=== PATIENT | female | born 1990 | race Caucasian/White ===

== ENCOUNTER 2019-09-16 22:11 | Emergency (ER) | payer SELFPAY ==
[2019-09-16] MEDS ORDERED: methylPREDNISolone Sodium Succinate 125 MG/2 ML SDV IVPUSH STA (22:20)
[2019-09-16] MEDS ORDERED: diphenhydrAMINE 50 MG/ML SDV IVPUSH ONE (22:21)
--- NOTE | 2019-09-16 22:27 | EDM.PDOC ---
ED HPI GENERAL MEDICAL PROBLEM - General Chief Complaint: Allergic Reaction Stated Complaint: ALLERGIC REACTION Time Seen by Provider: 09/16/19 22:17 Source of Information: Reports: Patient History Limitations: Reports: No Limitations - History of Present Illness INITIAL COMMENTS - FREE TEXT/NARRATIVE: [place] primary ovarian failure ( artificially induced) , decided to try feminine product vaginally, immediately developed rash and itching all over, in the trunk and extremities, no sob , no tongue swelling , no cough noted has other environmental allergies Onset: Today, Sudden Onset Date: 09/16/19 Onset Time: 08:30 Duration: Getting Worse Location: Reports: Head, Face, Neck, Abdomen, Back Quality: Reports: Burning Severity: Moderate Improves with: Reports: Cold Therapy Worsens with: Reports: None Context: Reports: Other (used new feminine product ( vaginally)) Associated Symptoms: Reports: Rash. Denies: Confusion, Cough, Diaphoresis, Shortness of Breath - Related Data Allergies Allergy/AdvReac Type Severity Reaction Status Date / Time erythromycin base Allergy Vomiting Verified 09/16/19 22:35 [Erythromycin Base] Home Meds: Home Meds Ibuprofen 800 - 1,200 mg PO Q4H PRN 12/14/14 [History] Gabapentin [Neurontin] 1 cap PO TID 09/16/19 [History] predniSONE [Prednisone] 40 mg PO DAILY 5 Days #5 tablet 09/16/19 [Rx] Past Medical History - Past Health History Medical/Surgical History: Denies Medical/Surgical History Psychiatric History: Reports: Suicide Attempt, Suicidal Ideation - Past Surgical History Female Surgical History: Reports: D&C, Hysterectomy Social & Family History - Caffeine Use Caffeine Use: Reports: None - Living Situation & Occupation Living situation: Reports: ED ROS ALLERGIC REACTION - Review of Systems Review Of Systems: See Below Constitutional: Reports: No Symptoms HEENT: Denies: Rhinitis, Sinus Problem, Throat Swelling, Vision Change Respiratory: Denies: Shortness of Breath, Wheezing, Cough Cardiovascular: Reports: No Symptoms Endocrine: Reports: No Symptoms GI/Abdominal: Reports: No Symptoms Musculoskeletal: Reports: No Symptoms Skin: Reports: Dryness, Rash Psychiatric: Reports: Anxiety Immunologic: Reports: Environmental Allergy ED EXAM GENERAL NO PERIP PULSE - Physical Exam Exam: See Below Exam Limited By: No Limitations General Appearance: Alert, WD/WN, Mild Distress (from itching) Eye Exam: Bilateral Eye: EOMI, PERRL Ears: Normal External Exam Nose: Normal Inspection Throat/Mouth: Normal Inspection Head: Atraumatic, Normocephalic. No: Facial Swelling, Facial Tenderness, Sinus Tenderness Neck: Normal Inspection, Supple, Non-Tender, Full Range of Motion Respiratory/Chest: Lungs Clear Cardiovascular: Regular Rate, Rhythm Extremities: Normal Range of Motion, Non-Tender Skin Exam: Warm, Rash (diffuse macular rash on neck trunk) Lymphatic: No Adenopathy Course - Vital Signs Text/Narrative:: pt given IV solumedrol, benadryl felt nauseated , given Zofran IVF started on pt, had 1liter of fluid , still felt "hot" rash gradually improved , was given Hydroxyzine 25mg po pt improved rash resolved since she had swallowed a pill, will place her on oral prednisone for 5 days Last Recorded V/S: Last Vital Signs Temp 36.7 C 09/16/19 22:13 Pulse 111 H 09/16/19 22:13 Resp 21 H 09/16/19 22:13 BP 145/109 H 09/16/19 22:13 Pulse Ox 100 09/16/19 22:13 - Orders/Labs/Meds Meds: Medications Discontinued Medications Generic Name Dose Route Start Last Admin Trade Name Freq PRN Reason Stop Dose Admin Al Hydroxide/Mg Hydroxide 30 ml 09/16/19 22:35 09/16/19 22:43 Mag-Al Susp PO 09/16/19 22:36 30 ml ONETIME ONE Administration Diphenhydramine HCl 25 mg 09/16/19 22:21 09/16/19 22:24 Benadryl IVPUSH 09/16/19 22:22 25 mg ONETIME ONE Administration Hydroxyzine Pamoate 50 mg 09/16/19 23:30 09/16/19 23:34 Vistaril PO 09/16/19 23:31 50 mg ONETIME ONE Administration Sodium Chloride 1,000 mls @ 999 mls/hr 09/16/19 22:36 09/16/19 23:00 Normal Saline IV 09/16/19 23:36 999 mls/hr .BOLUS ONE Administration Methylprednisolone Sodium Succinate 125 mg 09/16/19 22:20 09/16/19 22:24 Solu-Medrol IVPUSH 09/16/19 22:21 125 mg NOW STA Administration Ondansetron HCl 4 mg 09/16/19 22:29 09/16/19 22:32 Zofran Odt PO 09/16/19 22:30 4 mg ONETIME ONE Administration Ondansetron HCl Confirm 09/16/19 22:31 09/16/19 22:35 Zofran Odt Administered 09/16/19 22:32 Not Given Dose 4 mg .ROUTE .STK-MED ONE Departure - Departure Time of Disposition: 11:55 Disposition: Home, Self-Care 01 Condition: Fair Clinical Impression: Allergic reaction to chemical substance - Discharge Information *PRESCRIPTION DRUG MONITORING PROGRAM REVIEWED*: Not Applicable *COPY OF PRESCRIPTION DRUG MONITORING REPORT IN PATIENT SAIDA: Not Applicable Instructions: Allergies, Adult Referrals: Shayna Steinberg NP [Primary Care Provider] - Forms: ED Department Discharge Additional Instructions: Avoid same substance If symptoms re-occur , return to the ER Sepsis Event Note - Focused Exam Vital Signs: Vital Signs Temp Pulse Resp BP Pulse Ox 09/16/19 22:13 36.7 C 111 H 21 H 145/109 H 100 Date Exam was Performed: 09/16/19 Time Exam was Performed: 23:49
[2019-09-16] MEDS ORDERED: Ondansetron 4 MG Tab.DIS PO ONE (22:29)
[2019-09-16] MEDS ORDERED: Ondansetron 4 MG Tab.DIS ONE (22:31)
[2019-09-16] MEDS ORDERED: Aluminum Hydroxide/Magnesium Hydroxide Susp 30 ML Cup PO ONE (22:35)
[2019-09-16] MEDS ORDERED: Sodium Chloride 0.9% 1,000 ML IV ONE (22:36)
[2019-09-17 00:27] VITALS: BP 95/58; PULSE 80
== END 2019-09-17 00:25 | disposition home or self-care (01) ==
LOC: FB.ED 22:11
DX: T78.49XA Other allergy, initial encounter (principal); Z88.1 Allergy status to other antibiotic agents
CPT/HCPCS: 96361; 96374; 96375; 99283; 99283-25; A9270-GY; J1200; J2930; J7030

== ENCOUNTER 2019-10-28 19:56 | Emergency (ER) | payer MEDICAID, OTHER ==
[2019-10-28] MEDS ORDERED: Lidocaine 1% 20 ML MDV INFILT ONE (19:57)
[2019-10-28] MEDS ORDERED: Lidocaine/EPINEPHrine/Tetracaine Soln 5 ML Each TOP ONE (20:01)
--- NOTE | 2019-10-28 20:08 | EDM.PDOC ---
ED HPI GENERAL MEDICAL PROBLEM - General Stated Complaint: CUT TO LEFT HAND Time Seen by Provider: 10/28/19 20:00 Source of Information: Reports: Patient History Limitations: Reports: No Limitations - History of Present Illness INITIAL COMMENTS - FREE TEXT/NARRATIVE: Patient presented to the ED because of a laceration on the left upper arm. She was trying to open a bottle of wine with a knife and accidentally cut her right forearm sustained a 1.5 cm incised wound. left wrist Pain Score (Numeric/FACES): 7 - Related Data Allergies Allergy/AdvReac Type Severity Reaction Status Date / Time erythromycin base Allergy Vomiting Verified 09/16/19 22:35 [Erythromycin Base] Home Meds: Home Meds Ibuprofen 800 - 1,200 mg PO Q4H PRN 12/14/14 [History] Gabapentin [Neurontin] 1 cap PO TID 09/16/19 [History] predniSONE [Prednisone] 40 mg PO DAILY 5 Days #5 tablet 09/16/19 [Rx] Past Medical History - Past Health History Medical/Surgical History: Denies Medical/Surgical History Psychiatric History: Reports: Suicide Attempt, Suicidal Ideation - Past Surgical History Female Surgical History: Reports: D&C, Hysterectomy Social & Family History - Family History Family Medical History: Noncontributory - Caffeine Use Caffeine Use: Reports: None - Living Situation & Occupation Living situation: Reports: ED ROS GENERAL - Review of Systems Review Of Systems: See Below Constitutional: Reports: No Symptoms HEENT: Reports: No Symptoms Respiratory: Reports: No Symptoms Cardiovascular: Reports: No Symptoms Endocrine: Reports: No Symptoms GI/Abdominal: Reports: No Symptoms : Reports: No Symptoms Musculoskeletal: Reports: No Symptoms Skin: Reports: Other (1.5 cm incised wound left upper arm) ED EXAM, SKIN/RASH Exam: See Below Exam Limited By: No Limitations General Appearance: Alert, No Apparent Distress Ears: Normal External Exam, Normal Canal, Hearing Grossly Normal, Normal TMs Nose: Normal Inspection, Normal Mucosa Throat/Mouth: Normal Inspection, Normal Lips Head: Atraumatic, Normocephalic Neck: Normal Inspection, Supple, Non-Tender Respiratory/Chest: No Respiratory Distress, Lungs Clear, Normal Breath Sounds, No Accessory Muscle Use, Chest Non-Tender Cardiovascular: Normal Peripheral Pulses, Regular Rate, Rhythm, No Edema, No Gallop, No JVD, No Murmur, No Rub GI/Abdominal: Normal Bowel Sounds, Soft, Non-Tender, No Organomegaly, No Distention, No Abnormal Bruit (Female) Exam: Normal External Exam Back Exam: Normal Inspection, Full Range of Motion Extremities: Normal Inspection, Normal Range of Motion, Non-Tender, No Pedal Edema, Normal Capillary Refill Neurological: Alert, Oriented, CN II-XII Intact, Normal Cognition, Normal Gait, Normal Reflexes, No Motor/Sensory Deficits Psychiatric: Normal Affect, Normal Mood Skin: Warm, Intact, Normal Color ED SKIN PROCEDURES - Laceration/Wound Repair Left Upper Other Appearance: Superficial Distal NVT: Neuro & Vascular Intact Local Anesthesia - Lidocaine (Xylocaine): 1% Plain Local Anesthetic Volume: 1cc Skin Prep: Chlorhexidine (Hibiciens) Closed with: Sutures Lac/Wound length In cm: 1.5 Suture Size: 3-0 Suture Type: Nylon, Simple # of Sutures: 3 Course - Vital Signs Text/Narrative:: UTD with immunization see procedure Last Recorded V/S: Last Vital Signs Temp 36.4 C 10/28/19 19:56 Pulse 94 10/28/19 19:56 Resp 16 10/28/19 19:56 BP 119/68 10/28/19 19:56 Pulse Ox 98 10/28/19 19:56 - Orders/Labs/Meds Meds: Medications Discontinued Medications Generic Name Dose Route Start Last Admin Trade Name Chantel PRN Reason Stop Dose Admin Lidocaine/Tetracaine 5 ml 10/28/19 20:01 10/28/19 20:05 Let Soln TOP 10/28/19 20:02 5 ml ONETIME ONE Administration Departure - Departure Time of Disposition: 20:30 Disposition: Home, Self-Care 01 Condition: Good Clinical Impression: Laceration - Discharge Information Instructions: Laceration Care, Adult Referrals: Shayna Steinberg NP [Primary Care Provider] - Forms: ED Department Discharge Additional Instructions: Please read discharge instructions on laceration and wound care No need to apply an antibiotic ointment Do not cover your wound when you're inside the house(air dry) Removal of suture in 10 days at your clinic Sepsis Event Note - Focused Exam Vital Signs: Vital Signs Temp Pulse Resp BP Pulse Ox 10/28/19 19:56 36.4 C 94 16 119/68 98 Date Exam was Performed: 10/29/19 Time Exam was Performed: 04:55
[2019-10-28 20:42] VITALS: BP 119/68; PULSE 94
== END 2019-10-28 20:35 | disposition home or self-care (01) ==
LOC: FB.ED 19:56
DX: S51.811A Laceration without foreign body of right forearm, initial encounter (principal); Z88.1 Allergy status to other antibiotic agents; W26.0XXA Contact with knife, initial encounter
CPT/HCPCS: 12001; 99282; A9270; J2001

== ENCOUNTER 2020-03-16 14:53 | Emergency (ER) | payer SELFPAY ==
[2020-03-16 15:09] VITALS: BP 152/75; PULSE 112
[2020-03-16] MEDS ORDERED: LORazepam 2 MG/ML SDV IVPUSH ONE (15:18)
[2020-03-16] MEDS ORDERED: Ketorolac 30 MG/ML SDV IVPUSH ONE (15:18)
[2020-03-16] MEDS ORDERED: Ondansetron 4 MG/2 ML SDV IVPUSH ONE ×2 (15:18→16:21)
[2020-03-16] MEDS ORDERED: Sodium Chloride 0.9% 1,000 ML IV SCH (15:30)
--- NOTE | 2020-03-16 15:33 | EDM.PDOC ---
ED HPI GENERAL MEDICAL PROBLEM - General Chief Complaint: Genitourinary Problem Stated Complaint: left flank pain Time Seen by Provider: 03/16/20 15:00 Source of Information: Reports: Patient History Limitations: Reports: No Limitations - History of Present Illness INITIAL COMMENTS - FREE TEXT/NARRATIVE: Patient presented to the ED from the clinic because of intermittent N/V/D. She also c/o of some hematuria and for the past 2-3 days she has been having left flank pain,10/10. There is no associated fever, chills. She had a history of nephrolithiasis which she spontaneously passed. Left Lower Back Pain Score (Numeric/FACES): 8 - Related Data Allergies Allergy/AdvReac Type Severity Reaction Status Date / Time erythromycin base Allergy Vomiting Verified 09/16/19 22:35 [Erythromycin Base] Home Meds: Home Meds Ibuprofen 800 - 1,200 mg PO Q4H PRN 12/14/14 [History] Gabapentin [Neurontin] 1 cap PO TID 09/16/19 [History] predniSONE [Prednisone] 40 mg PO DAILY 5 Days #5 tablet 09/16/19 [Rx] Ketorolac [Toradol] 10 mg PO Q8H PRN #15 tab 03/16/20 [Rx] Past Medical History - Past Health History Medical/Surgical History: Denies Medical/Surgical History Psychiatric History: Reports: Suicide Attempt, Suicidal Ideation - Past Surgical History Female Surgical History: Reports: D&C, Hysterectomy Social & Family History - Family History Family Medical History: Noncontributory - Caffeine Use Caffeine Use: Reports: None - Living Situation & Occupation Living situation: Reports: ED ROS GENERAL - Review of Systems Review Of Systems: See Below Constitutional: Reports: No Symptoms HEENT: Reports: No Symptoms Respiratory: Reports: No Symptoms Cardiovascular: Reports: No Symptoms Endocrine: Reports: No Symptoms GI/Abdominal: Reports: Abdominal Pain, Nausea, Vomiting Musculoskeletal: Reports: No Symptoms Skin: Reports: No Symptoms Neurological: Reports: No Symptoms Psychiatric: Reports: No Symptoms ED EXAM, GI/ABD - Physical Exam Exam: See Below Exam Limited By: No Limitations General Appearance: Alert, No Apparent Distress Ears: Normal External Exam Nose: Normal Inspection, Normal Mucosa Throat/Mouth: Normal Inspection, Normal Lips Head: Atraumatic, Normocephalic Neck: Normal Inspection, Supple, Non-Tender Respiratory/Chest: No Respiratory Distress, Lungs Clear, Normal Breath Sounds Cardiovascular: Normal Peripheral Pulses, Regular Rate, Rhythm, No Edema, No Gallop GI/Abdominal Exam: Normal Bowel Sounds, Soft, No Organomegaly, No Distention, Other (left CVAT) Back Exam: Normal Inspection, Full Range of Motion Extremities: Normal Inspection, Normal Range of Motion, Non-Tender Neurological: Alert, Oriented, CN II-XII Intact, Normal Cognition Course - Vital Signs Text/Narrative:: Labs/CT abd & pelvis was discussed with patient and verbalized full understanding NS 1 L bolus Zofran 4 mg IV x2 Toradol 30 mg IV x1 Morphine 2 mg IV x1 Ativan 1mg IV x1 Last Recorded V/S: Last Vital Signs Temp 36.7 C 03/16/20 14:53 Pulse 112 H 03/16/20 14:53 Resp 18 03/16/20 14:53 BP 152/75 H 03/16/20 14:53 Pulse Ox 98 03/16/20 14:53 - Orders/Labs/Meds Orders: Active Orders 24 hr Category Date Time Status Abdomen Pelvis w Cont [CT] Stat Exams 03/16/20 15:50 Ordered Sodium Chloride 0.9% [Normal Saline] 1,000 ml Med 03/16/20 15:30 Active IV ASDIRECTED Medication Orders Sodium Chloride (Normal Saline) 1,000 mls @ 999 mls/hr IV ASDIRECTED ELBA Last Admin: 03/16/20 15:27 Dose: 999 mls/hr Labs: Laboratory Tests 03/16/20 03/16/20 03/16/20 Range/Units 15:30 15:30 15:30 WBC 7.1 (4.5-12.0) X10-3/uL RBC 4.28 (3.23-5.20) x10(6)uL Hgb 14.0 (11.5-15.5) g/dL Hct 41.9 (30.0-51.3) % MCV 97.9 H (80-96) fL MCH 32.7 (27.7-33.6) pg MCHC 33.4 (32.2-35.4) g/dL RDW 12.1 (11.5-15.5) % Plt Count 305 (125-369) X10(3)uL MPV 8.8 (7.4-10.4) fL Neut % (Auto) 57.4 (46-82) % Lymph % (Auto) 35.3 (13-37) % [place] % (Auto) 4.8 (4-12) % Eos % (Auto) 2 (1.0-5.0) % Baso % (Auto) 1 (0-2) % Neut # (Auto) 4.1 (1.6-8.3) # Lymph # (Auto) 2.5 (0.6-5.0) # [place] # (Auto) 0.3 (0.0-1.3) # Eos # (Auto) 0.1 (0.0-0.8) # Baso # (Auto) 0.1 (0.0-0.2) # Sodium 141 (135-145) mmol/L Potassium 3.7 (3.5-5.3) mmol/L Chloride 105 (100-110) mmol/L Carbon Dioxide 26 (21-32) mmol/L BUN 9 (7-18) mg/dL Creatinine 0.7 (0.55-1.02) mg/dL Est Cr Clr Drug Dosing TNP Estimated GFR (MDRD) > 60 (>60) BUN/Creatinine Ratio 12.9 (9-20) Glucose 92 (80-116) mg/dL Calcium 9.3 (8.6-10.2) mg/dL Total Bilirubin 0.3 (0.1-1.3) mg/dL AST 19 (5-25) IU/L ALT 30 (12-36) U/L Alkaline Phosphatase 72 (56-112) IU/L Total Protein 8.4 H (6.0-8.0) g/dL Albumin 4.8 (3.5-5.2) g/dL Globulin 3.6 g/dL Albumin/Globulin Ratio 1.3 Amylase 43 (25-115) U/L Lipase 83 (73-393) U/L Meds: Medications Generic Name Dose Route Start Last Admin Trade Name Freq PRN Reason Stop Dose Admin Sodium Chloride 1,000 mls @ 999 mls/hr 03/16/20 15:30 03/16/20 15:27 Normal Saline IV 999 mls/hr ASDIRECTED ELBA Administration Discontinued Medications Generic Name Dose Route Start Last Admin Trade Name Freq PRN Reason Stop Dose Admin Iopamidol 100 ml 03/16/20 15:57 03/16/20 16:26 Isovue-370 (76%) IV 03/16/20 15:58 100 ml . DIRECTED ONE Administration Ketorolac Tromethamine 30 mg 03/16/20 15:18 03/16/20 15:25 Toradol IVPUSH 03/16/20 15:19 30 mg ONETIME ONE Administration Lorazepam 1 mg 03/16/20 15:18 03/16/20 15:26 Ativan IVPUSH 03/16/20 15:19 1 mg ONETIME ONE Administration Morphine Sulfate 2 mg 03/16/20 16:21 Morphine IVPUSH 03/16/20 16:22 ONETIME ONE Ondansetron HCl 4 mg 03/16/20 15:18 03/16/20 15:24 Zofran IVPUSH 03/16/20 15:19 4 mg ONETIME ONE Administration Ondansetron HCl 4 mg 03/16/20 16:21 Zofran IVPUSH 03/16/20 16:22 ONETIME ONE Departure - Departure Time of Disposition: 16:50 Disposition: Home, Self-Care 01 Condition: Good Clinical Impression: Gastroenteritis, Renal colic on left side - Discharge Information Prescriptions: Ketorolac [Toradol] 10 mg PO Q8H PRN #15 tab PRN Reason: Pain Instructions: Viral Gastroenteritis, Adult, Renal Colic, [id number] Referrals: PCP,None [Ordering Only Provider] - Forms: ED Department Discharge Additional Instructions: Please read discharge instructions on gastroenteritis and renal colic Increase oral fluids Take your vistaril as prescribed for nausea/anxiety/sleep Toradol 10 mg with tylenol 1000 mg every 8 hours as needed for your pain You can take imodium(over the counter) 2 tablets every 6 hours as needed for diarrhea Follow up as needed Sepsis Event Note (ED) - Evaluation Sepsis Screening Result: No Definite Risk - Focused Exam Vital Signs: Vital Signs Temp Pulse Resp BP Pulse Ox 03/16/20 14:53 36.7 C 112 H 18 152/75 H 98 - My Orders Last 24 Hours: My Active Orders 03/16/20 15:30 Sodium Chloride 0.9% [Normal Saline] 1,000 ml IV ASDIRECTED 03/16/20 15:50 Abdomen Pelvis w Cont [CT] Stat - Assessment/Plan Last 24 Hours: My Active Orders 03/16/20 15:30 Sodium Chloride 0.9% [Normal Saline] 1,000 ml IV ASDIRECTED 03/16/20 15:50 Abdomen Pelvis w Cont [CT] Stat
[2020-03-16] MEDS ORDERED: Iopamidol 755 Mg/ML 100 ML Bottle IV ONE (15:57)
[2020-03-16] MEDS ORDERED: Morphine 2 MG/ML Syringe IVPUSH ONE (16:21)
--- NOTE | 2020-03-16 19:17 | CT ---
INDICATION: Left flank pain/left-sided abdominal pain. CT ABDOMEN AND PELVIS WITH IV CONTRAST: Spiral 3.75 mm axial sections were obtained through the abdomen and pelvis with 100 mL Isovue-370 at 2 mL/second with sagittal and coronal reconstructions 03/16/20 and compared with 07/12/17. Total exam DLP was 485.99 mGy-cm. The lower lung mays and pleural spaces visualized appeared to show evidence of emphysematous change at the right lung base medially with an appearance of abnormal airspace in that region. It appears similar to the previous study in that area. The heart was not enlarged. No pericardial effusion was seen. The liver, gallbladder, spleen, pancreas, adrenal glands, kidneys, and retroperitoneum appeared normal. The appendix appeared normal visualized on coronal images 38 through 42. No evidence of free air or bowel obstruction was seen. The uterus and ovaries are absent compatible with their surgical removal. The urinary bladder appeared slightly distended, of questionable significance - could be on the basis of urinary retention but should be correlated clinically. A mild dextroconcave scoliosis is noted at the thoracolumbar spine. Degenerative disc disease is suggested at L4-5 with posteriorly bulging disc suggested at that level, and narrowing of the L4-5 disc space suggested to a mild degree. A 6.7 mm apparent calcific density again noted but changed in position, now noted along the medial aspect of the upper middle descending colon (previously it was located along the cranial aspect of the proximal transverse colon on coronal image 26, and is now seen on coronal image #31), likely representing a movable stone-like calcific change of indeterminate etiology and clinical significance. IMPRESSION: 1. No evidence of obstructive uropathy. 2. Post-hysterectomy/oophorectomy. 3. Dextroconcave rotoscoliosis thoracolumbar spine. 4. 6.7 mm apparent calcific density again noted but changed in position, now noted along the medial aspect of the upper middle descending colon (previously it was located along the cranial aspect of the proximal transverse colon on coronal image 26, and is now seen on coronal image #31), likely representing a movable stone-like calcific change of indeterminate etiology and clinical significance. Report was called to Dr. Wynn at 1642 hours. [facility]
== END 2020-03-16 17:05 | disposition home or self-care (01) ==
LOC: FB.ED 14:53
DX: K52.9 Noninfective gastroenteritis and colitis, unspecified (principal); N23 Unspecified renal colic; Z90.710 Acquired absence of both cervix and uterus; Z88.1 Allergy status to other antibiotic agents; Z79.899 Other long term (current) drug therapy
CPT/HCPCS: 36415; 74177; 80053; 82150; 83690; 85025; 96361; 96374; 96375; 96376; 99284; J1885; J2060; J2270; J2405; J7030; Q9967

== ENCOUNTER 2020-03-18 16:36 | Observation (INO) | payer SELFPAY ==
[2020-03-18] MEDS ORDERED: Ketorolac 30 MG/ML SDV IM PRN (16:41)
[2020-03-18] MEDS: Sodium Chloride 0.9% 1,000 ML IV SCH (17:13)
[2020-03-18] MEDS: Acetaminophen/HYDROcodone 325-5 MG Tab PO PRN ×2 (17:20→21:34)
[2020-03-18] MEDS: Ondansetron 4 MG/2 ML SDV IVPUSH PRN ×2 (17:44→21:44)
[2020-03-19] MEDS: Ketorolac 30 MG/ML SDV IVPUSH PRN ×2 (00:25→07:41)
[2020-03-19] MEDS: Sodium Chloride 0.9% 1,000 ML IV SCH ×2 (01:12→08:33)
[2020-03-19] MEDS: Acetaminophen/HYDROcodone 325-5 MG Tab PO PRN ×2 (06:12→10:51)
[2020-03-19] MEDS: Ondansetron 4 MG/2 ML SDV IVPUSH PRN (06:15)
[2020-03-19] MEDS ORDERED: Tamsulosin 0.4 MG Cap.ER PO SCH (09:02)
--- NOTE | 2020-03-19 09:23 | PCM.HP.2 ---
H&P History of Present Illness - General Date of Service: 03/19/20 Admit Problem/Dx: Admission Diagnosis/Problem Admission Diagnosis/Problem Back pain Source of Information: Patient, Provider - History of Present Illness Initial Comments - Free Text/Narative: Giselle is a 30 yr old female who presents with left flank pain for past 5 days, was seen in ER on 03/16, CT was negative for nephrolithiasis but stone like density in her descending colon but had hematuria with history of nephrolithiasis was sent home with pain and nausea medications. Followed up with Dr Coello in the clinic yesterday as she was not able to keep anything done. Received 2 liters of IV fluids in the clinic and only had small amount of urine out. She noted that she thought she passed a stone at home but was unable to retrieve it. She has not seen Urology for quite a while, had cystoscopy for persistent hematuria, no history of stents or lithotripsy. Denies fevers, shortness of breath, chest pain, having normal bowel movements. Associated with left flank pain is dysuria but decreased frequency. UA at [place] was positive for hematuria but no signs of infection(see scanned documents). History of hysterectomy. left flank Pain Score (Numeric/FACES): 8 - Related Data Allergies/Adverse Reactions: Allergies Allergy/AdvReac Type Severity Reaction Status Date / Time erythromycin base Allergy Vomiting Verified 03/18/20 17:26 [Erythromycin Base] Home Medications: Home Meds Gabapentin [Neurontin] 300 mg PO TID 03/19/20 [History] hydrOXYzine pamoate [Hydroxyzine Pamoate] 25 mg PO Q6H PRN 03/19/20 [History] Past Medical History - Past Health History Medical/Surgical History: Denies Medical/Surgical History Cardiovascular History: Reports: None Respiratory History: Reports: None Gastrointestinal History: Reports: Other (See Below) Other Gastrointestinal History: Heartburn Genitourinary History: Reports: UTI, Recurrent [employer] History: Reports: , Other (See Below) Other OB/BYN History: ovarian cysts Psychiatric History: Reports: Anxiety, Suicide Attempt, Suicidal Ideation - Past Surgical History Female Surgical History: Reports: D&C, Hysterectomy, Oophorectomy, Other ( See Below) Other Female Surgeries/Procedures: Vaginal Cuff x2 Social & Family History - Family History Family Medical History: Noncontributory - Tobacco Use Smoking Status *Q: Current Every Day Smoker Years of Tobacco use: 10 Packs/Tins Daily: 1 Second Hand Smoke Exposure: Yes - Caffeine Use Caffeine Use: Reports: Coffee, Soda - Alcohol Use Days Per Week of Alcohol Use: 1 Number of Drinks Per Day: 1 Total Drinks Per Week: 1 - Recreational Drug Use Recreational Drug Use: No - Living Situation & Occupation Living situation: Reports: H&P Review of Systems - Review of Systems: Review Of Systems: Comprehensive ROS is negative, except as noted in HPI. Exam - Exam Exam: See Below - Vital Signs Vital Signs: Last Vital Signs Temp 97.9 F 03/19/20 07:31 Pulse 63 03/19/20 07:31 Resp 18 03/19/20 07:31 BP 110/64 03/19/20 07:31 Pulse Ox 98 03/19/20 07:31 Weight: 173 lb - Exam General: Alert, Oriented, Cooperative, Mild Distress HEENT: PERRLA, Conjunctiva Clear Lungs: Clear to Auscultation, Normal Respiratory Effort Cardiovascular: Regular Rate, Regular Rhythm GI/Abdominal Exam: Normal Bowel Sounds, Soft, No Distention, Tender (Left flank) (Female) Exam: Deferred Rectal (Female) Exam: Deferred Back Exam: CVA Tenderness (L) Extremities: No Pedal Edema Peripheral Pulses: 2+: Radial (L), Radial (R) - Patient Data Lab Results Last 24 hrs: Laboratory Results - last 24 hr 03/19/20 03/19/20 Range/Units 06:07 06:07 WBC 5.4 (4.5-12.0) X10-3/uL RBC 3.49 (3.23-5.20) x10(6)uL Hgb 11.5 (11.5-15.5) g/dL Hct 34.2 (30.0-51.3) % MCV 98.2 H (80-96) fL MCH 32.9 (27.7-33.6) pg MCHC 33.5 (32.2-35.4) g/dL RDW 12.3 (11.5-15.5) % Plt Count 181 (125-369) X10(3)uL MPV 8.8 (7.4-10.4) fL Neut % (Auto) 37.6 L (46-82) % Lymph % (Auto) 51.3 H (13-37) % [place] % (Auto) 6.9 (4-12) % Eos % (Auto) 4 (1.0-5.0) % Baso % (Auto) 1 (0-2) % Neut # (Auto) 2.0 (1.6-8.3) # Lymph # (Auto) 2.8 (0.6-5.0) # [place] # (Auto) 0.4 (0.0-1.3) # Eos # (Auto) 0.2 (0.0-0.8) # Baso # (Auto) 0.0 (0.0-0.2) # Sodium 141 (135-145) mmol/L Potassium 4.2 (3.5-5.3) mmol/L Chloride 108 (100-110) mmol/L Carbon Dioxide 28 (21-32) mmol/L BUN 12 (7-18) mg/dL Creatinine 0.8 (0.55-1.02) mg/dL Est Cr Clr Drug Dosing 116.50 mL/min Estimated GFR (MDRD) > 60 (>60) BUN/Creatinine Ratio 15.0 (9-20) Glucose 94 (80-116) mg/dL Calcium 8.5 L (8.6-10.2) mg/dL Result Diagrams: 03/19/20 06:07 03/19/20 06:07 Sepsis Event Note - Evaluation Sepsis Screening Result: No Definite Risk - Focused Exam Vital Signs: Vital Signs Temp Pulse Resp BP Pulse Ox 03/19/20 07:31 97.9 F 63 18 110/64 98 03/19/20 00:00 97.8 F 57 L 18 107/62 99 Date Exam was Performed: 03/19/20 Time Exam was Performed: 10:30 - Problem List (1) Renal colic on left side SNOMED Code(s): 6826007 ICD Code: N23 - UNSPECIFIED RENAL COLIC Status: Acute Current Visit: No (2) Abdominal pain SNOMED Code(s): 20528319 ICD Code: R10.9 - UNSPECIFIED ABDOMINAL PAIN Status: Acute Priority: Medium Current Visit: No Onset Date: 03/15/20 Problem Details: tramadol, ibuprofen (3) Pain in pelvis SNOMED Code(s): 69751187 ICD Code: R10.2 - PELVIC AND PERINEAL PAIN Status: Chronic Current Visit : No Problem List Initiated/Reviewed/Updated: Yes Orders Last 24hrs: Active Orders 24 hr Category Date Time Status Admission Status [Patient Status] [ADT] Routine ADT 03/18/20 16:41 Active Oxygen Therapy [RC] PRN Care 03/18/20 16:41 Active Up With Assistance [RC] ASDIRECTED Care 03/18/20 16:41 Active VTE/DVT Education [RC] Per Unit Routine Care 03/18/20 16:41 Active Vital Signs [RC] 08,12,16,20,00,04 Care 03/18/20 16:41 Active Acetaminophen [Tylenol Extra Strength] Med 03/19/20 08:30 Active 500 mg PO Q6H Acetaminophen/HYDROcodone [[place] 325-5 MG] Med 03/18/20 16:41 Active 1 tab PO Q4H PRN Ketorolac [Toradol] Med 03/19/20 14:00 Active 30 mg IVPUSH Q6H Ondansetron [Zofran] Med 03/18/20 16:41 Active 4 mg IVPUSH Q4H PRN Sodium Chloride 0.9% [Normal Saline] 1,000 ml Med 03/18/20 16:45 Active IV ASDIRECTED Tamsulosin [Flomax] Med 03/19/20 09:02 Active 0.4 mg PO BIDPC Resuscitation Status Routine Resus Stat 03/18/20 16:41 Ordered Medication Orders Acetaminophen (Tylenol Extra Strength) 500 mg PO Q6H [facility] Hydrocodone Bitart/Acetaminophen ([place] 325-5 Mg) 1 tab PO Q4H PRN PRN Reason: Pain (moderate 4-6) Last Admin: 03/19/20 06:12 Dose: 1 tab Admin: 03/18/20 21:34 Dose: 1 tab Admin: 03/18/20 17:20 Dose: 1 tab Sodium Chloride (Normal Saline) 1,000 mls @ 250 mls/hr IV ASDIRECTED [facility] Last Admin: 03/19/20 08:33 Dose: 250 mls/hr Infusion: 03/19/20 08:33 Dose: 125 mls/hr Admin: 03/19/20 01:12 Dose: 125 mls/hr Infusion: 03/19/20 01:12 Dose: 125 mls/hr Admin: 03/18/20 17:13 Dose: 125 mls/hr Ketorolac Tromethamine (Toradol) 30 mg IVPUSH Q6H [facility] Ondansetron HCl (Zofran) 4 mg IVPUSH Q4H PRN PRN Reason: Nausea/Vomiting Last Admin: 03/19/20 06:15 Dose: 4 mg Admin: 03/18/20 21:44 Dose: 4 mg Admin: 03/18/20 17:44 Dose: 4 mg [facility]Plan Comment:: 1. Admit for observation for suspected kidney stone, 6 mm stone in descending colon of unknown significance. 2. Strain urine, LR at 250 ml/hr, Flomax 0.4 mg bid. 3. Toradol 30 mg IV q6h & Tylenol 500 mg q6h schedule with [place] 5/325 mg as needed for breakthrough pain. 4. Resume Gabapentin for chronic pelvic pain. 5. Regular diet. 6. Zofran as needed nausea. 7. Adjust treatments as needed. 8. FULL CODE. - Mortality Measure Prognosis:: Good
[2020-03-19] MEDS: Acetaminophen 500 MG Tab PO SCH ×2 (09:37→13:56)
[2020-03-19] MEDS ORDERED: hydrOXYzine HCl 25 MG Tab PO PRN (10:56)
[2020-03-19] MEDS ORDERED: Gabapentin 300 MG Cap PO SCH (11:00)
[2020-03-19 11:04] VITALS: BP 116/73; PULSE 71
[2020-03-19] MEDS ORDERED: Lactated Ringers 1,000 ML IV SCH (12:45)
[2020-03-19] MEDS ORDERED: Polyethylene Glycol 3350 Powder 17 GM Packet PO SCH (13:45)
[2020-03-19] MEDS ORDERED: Ketorolac 30 MG/ML SDV IVPUSH SCH (14:00)
--- NOTE | 2020-03-19 14:51 | PCM.DCSUM1 ---
Discharge Summary - Hospital Course HPI Initial Comments: Giselle is a 30 yr old female who presents with left flank pain for past 5 days, was seen in ER on 03/16, CT was negative for nephrolithiasis but stone like density in her descending colon but had hematuria with history of nephrolithiasis was sent home with pain and nausea medications. Followed up with Dr Coello in the clinic yesterday as she was not able to keep anything done. Received 2 liters of IV fluids in the clinic and only had small amount of urine out. She noted that she thought she passed a stone at home but was unable to retrieve it. She has not seen Urology for quite a while, had cystoscopy for persistent hematuria, no history of stents or lithotripsy. Denies fevers, shortness of breath, chest pain, having normal bowel movements. Associated with left flank pain is dysuria but decreased frequency. UA at [place] was positive for hematuria but no signs of infection(see scanned documents). History of hysterectomy. Diagnosis: Stroke: No - Discharge Data Discharge Date: 03/19/20 Discharge Disposition: Home, Self-Care 01 Condition: Good - Referral to Home Health Primary Care Physician: Ruy Snyder MD - Discharge Diagnosis/Problem(s) (1) Renal colic on left side SNOMED Code(s): 4914951 ICD Code: N23 - UNSPECIFIED RENAL COLIC Status: Acute Current Visit: No Problem Details: improved, rate 5/10 (2) Abdominal pain SNOMED Code(s): 36979913 ICD Code: R10.9 - UNSPECIFIED ABDOMINAL PAIN Status: Acute Priority: Medium Current Visit: No Onset Date: 03/15/20 Problem Details: tramadol, ibuprofen (3) Pain in pelvis SNOMED Code(s): 49358992 ICD Code: R10.2 - PELVIC AND PERINEAL PAIN Status: Chronic Current Visit : No - Patient Summary/Data Hospital Course: Giselle was admitted from clinic yesterday late afternoon, started on NS at 125 ml/ hr with Toradol 30 mg IV q6h as needed, she had 1 dose last night and another this morning and [place] 5/325 mg for breakthrough pain, had 2 doses overnight and 2 doses so far today. Had minimal urine output overnight. NS was increased to 250 ml/hr and Flomax was started this morning. Once NS was completed, she was changed to LR at 250 ml/hr. Required 3 doses of Zofran, 2 last night and 1 this morning. Also changed Toradol to scheduled and added Tylenol 500 mg q6h scheduled this morning. Her urine output increased during the day, pain decreased from 7/10 to 5/10. She kept her breakfast and lunch down. Nausea improved. She has Tylenol #3, Flomax scripts at home along with Zofran ODT, would like to go home now as she is feeling much better. - Patient Instructions Diet: Regular Diet as Tolerated Activity: As Tolerated Driving: May Drive Today Showering/Bathing: May Shower Notify Provider of: Increased Pain, Nausea and/or Vomiting Other/Special Instructions: Follow up with Dr Coello next week for repeat urine. - Discharge Plan *PRESCRIPTION DRUG MONITORING PROGRAM REVIEWED*: Not Applicable *COPY OF PRESCRIPTION DRUG MONITORING REPORT IN PATIENT SAIDA: No Prescriptions/Med Rec: Ibuprofen 200 mg PO Q4H PRN #20 tablet PRN Reason: Pain Home Medications: Home Meds Gabapentin [Neurontin] 300 mg PO TID 03/19/20 [History] Ibuprofen 200 mg PO Q4H PRN #20 tablet 03/19/20 [Rx] Tamsulosin [Flomax] 0.4 mg PO BIDPC cap.er 03/19/20 [Rx] hydrOXYzine pamoate [Hydroxyzine Pamoate] 25 mg PO Q6H PRN 03/19/20 [History] polyethylene glycoL 3350 [MiraLAX] 17 gm PO DAILY packet 03/19/20 [Rx] Oxygen Therapy Mode: Room Air Patient Handouts: Kidney Stones, [id number] Referrals: Josh Coello MD [Physician] - - Discharge Summary/Plan Comment DC Time >30 min.: No - Patient Data Vitals - Most Recent: Last Vital Signs Temp 98.0 F 03/19/20 11:03 Pulse 71 03/19/20 11:03 Resp 18 03/19/20 11:03 BP 116/73 03/19/20 11:03 Pulse Ox 100 03/19/20 11:03 Weight - Most Recent: 173 lb I&O - Last 24 hours: Intake & Output 03/18/20 03/19/20 03/19/20 22:59 06:59 14:59 Intake Total 006 099 6128 Output Total 150 500 350 Balance [phone] Lab Results - Last 24 hrs: Laboratory Results - last 24 hr 03/19/20 03/19/20 Range/Units 06:07 06:07 WBC 5.4 (4.5-12.0) X10-3/uL RBC 3.49 (3.23-5.20) x10(6)uL Hgb 11.5 (11.5-15.5) g/dL Hct 34.2 (30.0-51.3) % MCV 98.2 H (80-96) fL MCH 32.9 (27.7-33.6) pg MCHC 33.5 (32.2-35.4) g/dL RDW 12.3 (11.5-15.5) % Plt Count 181 (125-369) X10(3)uL MPV 8.8 (7.4-10.4) fL Neut % (Auto) 37.6 L (46-82) % Lymph % (Auto) 51.3 H (13-37) % [place] % (Auto) 6.9 (4-12) % Eos % (Auto) 4 (1.0-5.0) % Baso % (Auto) 1 (0-2) % Neut # (Auto) 2.0 (1.6-8.3) # Lymph # (Auto) 2.8 (0.6-5.0) # [place] # (Auto) 0.4 (0.0-1.3) # Eos # (Auto) 0.2 (0.0-0.8) # Baso # (Auto) 0.0 (0.0-0.2) # Sodium 141 (135-145) mmol/L Potassium 4.2 (3.5-5.3) mmol/L Chloride 108 (100-110) mmol/L Carbon Dioxide 28 (21-32) mmol/L BUN 12 (7-18) mg/dL Creatinine 0.8 (0.55-1.02) mg/dL Est Cr Clr Drug Dosing 116.50 mL/min Estimated GFR (MDRD) > 60 (>60) BUN/Creatinine Ratio 15.0 (9-20) Glucose 94 (80-116) mg/dL Calcium 8.5 L (8.6-10.2) mg/dL Med Orders - Current: Current Medications Acetaminophen (Tylenol Extra Strength) 500 mg PO Q6H [facility] Last Admin: 03/19/20 13:56 Dose: 500 mg Hydrocodone Bitart/Acetaminophen ([place] 325-5 Mg) 1 tab PO Q4H PRN PRN Reason: Pain (moderate 4-6) Last Admin: 03/19/20 10:51 Dose: 1 tab Gabapentin (Neurontin) 300 mg PO TID [facility] Last Admin: 03/19/20 11:02 Dose: 300 mg Hydroxyzine HCl (Atarax) 25 mg PO Q6H PRN PRN Reason: ITCHING/NAUSEA Lactated Ringer's (Ringers, Lactated) 1,000 mls @ 250 mls/hr IV ASDIRECTED [facility] Last Admin: 03/19/20 12:42 Dose: 250 mls/hr Ketorolac Tromethamine (Toradol) 30 mg IVPUSH Q6H [facility] Last Admin: 03/19/20 13:56 Dose: 30 mg Ondansetron HCl (Zofran) 4 mg IVPUSH Q4H PRN PRN Reason: Nausea/Vomiting Last Admin: 03/19/20 06:15 Dose: 4 mg Polyethylene Glycol (Miralax) 17 gm PO DAILY [facility] Last Admin: 03/19/20 13:52 Dose: 17 gm Senna/Docusate Sodium (Senna Plus) 1 tab PO BID PRN PRN Reason: Constipation Tamsulosin HCl (Flomax) 0.4 mg PO BIDPC [facility] Last Admin: 03/19/20 09:37 Dose: 0.4 mg Discontinued Medications Sodium Chloride (Normal Saline) 1,000 mls @ 250 mls/hr IV ASDIRECTED [facility] Last Admin: 03/19/20 08:33 Dose: 250 mls/hr Ketorolac Tromethamine (Toradol) 30 mg IM Q6H PRN PRN Reason: Pain (moderate 4-6) Last Admin: 03/18/20 17:46 Dose: 30 mg Ketorolac Tromethamine (Toradol) 30 mg IVPUSH Q6H PRN PRN Reason: Pain (moderate 4-6) Last Admin: 03/19/20 07:41 Dose: 30 mg
== END 2020-03-19 15:07 | disposition home or self-care (01) ==
LOC: FB.MS 16:57
PROVIDERS: ADMIT Family Medicine; ATTEND Family Medicine
DX: N20.0 Calculus of kidney (principal); F17.210 Nicotine dependence, cigarettes, uncomplicated; Z88.1 Allergy status to other antibiotic agents; Z79.899 Other long term (current) drug therapy
CPT/HCPCS: 36415; 80048; 85025; 96361; 96372; 96374; 96375; 96376; A9270; G0378; G0379; J1885; J2405; J7030; J7120

== ENCOUNTER 2022-02-17 17:48 | Emergency (ER) | payer SELFPAY ==
[2022-02-17] MEDS ORDERED: Lidocaine 2% 20 ML MDV INFILT ONE (17:49)
[2022-02-17] MEDS ORDERED: Diphtheria,Pertussis(Acell),Tetanus Vaccine 0.5 ML Syringe IM ONE (18:00)
[2022-02-17] MEDS ORDERED: Bacitracin Oint 1 GM U/D Packet TOP ONE (18:01)
[2022-02-17] MEDS ORDERED: diphenhydrAMINE 50 MG Cap PO ONE (18:03)
[2022-02-17 21:09] VITALS: BP 142/56; PULSE 62
== END 2022-02-17 18:30 | disposition home or self-care (01) ==
LOC: FB.ED 17:48
DX: S51.812A Laceration without foreign body of left forearm, initial encounter (principal); Z23 Encounter for immunization; Z79.899 Other long term (current) drug therapy; Z88.1 Allergy status to other antibiotic agents; W25.XXXA Contact with sharp glass, initial encounter
CPT/HCPCS: 12001; 90471; 90715; 99281; 99282; A9270

== ENCOUNTER 2023-07-04 00:28 | Emergency (ER) | payer SELFPAY ==
[2023-07-04] MEDS ORDERED: Morphine 10 MG/ML SDV IM ONE (00:46)
[2023-07-04] MEDS ORDERED: Ondansetron 4 MG/2 ML SDV IM ONE (00:46)
[2023-07-04 01:18] VITALS: BP 122/69; PULSE 90
== END 2023-07-04 01:19 | disposition home or self-care (01) ==
LOC: FB.ED 00:28
DX: G43.909 Migraine, unspecified, not intractable, without status migrainosus (principal); F17.210 Nicotine dependence, cigarettes, uncomplicated; Z88.1 Allergy status to other antibiotic agents
CPT/HCPCS: 96372; 99283; J2270; J2405